=== PATIENT | female | born 1985 | race African-American/Black ===

== ENCOUNTER 2019-06-19 19:05 | Emergency (ER) | payer BC, SELFPAY ==
[2019-06-19 19:16] VITALS: BP 138/102; PULSE 97; RESP 18; TEMP 36.9; O2SAT 100
--- NOTE | 2019-06-19 19:30 | ED.FEMALEGU ---
HPI - Female Genitourinary General Chief complaint: Urogenital-Female Stated complaint: Possible UTI Source: patient Mode of arrival: ambulatory Limitations: no limitations History of Present Illness HPI Narrative: Patient is a 34-year-old female who presents complaining of burning with urination. She reports pain x3 days. She reports starting Macrobid 2 days ago and symptoms remain the same. Patient denies other complaints. MD elicited complaint: dysuria and UTI Related Data Home Medications Medication Instructions Recorded Confirmed nitrofurantoin monohyd/m-cryst 100 mg PO DAILY 06/19/19 06/19/19 Allergies Allergy/AdvReac Type Severity Reaction Status Date / Time No Known Allergies Allergy Verified 06/19/19 19:22 Review of Systems Review of Systems: Narrative: CONSTITUTIONAL: Denies fever, chills, or sweats. EYES: Denies visual changes, redness, or discharge. ENT: Denies rhinorrhea, congestion, sore throat, or otalgia. CARDIOVASCULAR: Denies chest pain, palpitations, or edema. RESPIRATORY: Denies cough or dyspnea. GASTROINTESTINAL: Denies abdominal pain, nausea, vomiting, or diarrhea. GENITOURINARY: Reports dysuria, denies hematuria. SKIN: Denies rash or itching. MUSCULOSKELETAL: Denies back pain, joint pain, or myalgia. NEUROLOGIC: Denies headache, numbness, dizziness, or weakness. PSYCHIATRIC: Denies anxiety or depression. [facility] Past Medical History Medical History (Updated 06/19/19 @ 19:35 by HECTOR Thomas) No significant past medical history Surgical History Surgical History (Updated 06/19/19 @ 19:32 by HECTOR Thomas) No pertinent past surgical history Social History Social History (Updated 06/19/19 @ 19:33 by HECTOR Thomas) Smoking status: Never smoker Alcohol intake: current Alcohol use details: Socially Substance use: never Living arrangements: with family Occupation/Education: occupation Gender identity (if verbalized by the patient): Female Exam Narrative: Exam Narrative: GENERAL: Well-appearing, well-nourished, and in no acute distress. HEAD: Normocephalic, atraumatic. EYES: EOMI. No redness or drainage. Conjunctiva are normal. ENT: Mucous membranes pink and moist. Nares clear. No rhinorrhea. TMs normal bilaterally. Throat normal. Uvula midline. NECK: AROM. Supple. No lymphadenopathy. CHEST: No respiratory distress. Clear to auscultation. HEART: Regular rate and rhythm. No murmur appreciated. Normal peripheral pulses. GI: Soft, nontender without rebound, or guarding. No distention. Bowel sounds normal in all quadrants. : No CVA tenderness MUSCULOSKELETAL: No bony tenderness. EXTREMITIES: Normal range of motion. No edema. SKIN: Warm, dry, no rash. NEURO: No focal deficits. Alert and oriented x3. Gait steady. PSYCH: Normal affect. No signs of depression or anxiety. Course Vital Signs Vital signs: Vital Signs Temperature 36.9 C 06/19/19 19:16 Pulse Rate 97 06/19/19 19:16 Respiratory Rate 18 06/19/19 19:16 Blood Pressure 138/102 H 06/19/19 19:16 Pulse Oximetry 100 06/19/19 19:16 Temperature 36.9 C 06/19/19 19:16 Pulse Rate 97 06/19/19 19:16 Respiratory Rate 18 06/19/19 19:16 Blood Pressure 138/102 H 06/19/19 19:16 Pulse Oximetry 100 06/19/19 19:16 Reviewed. Patient has been instructed to follow-up with her PCP regarding her blood pressure. MDM - Female Genitourinary MDM Narrative Medical decision making narrative: Patient UA showed trace blood, patient has been on Macrobid for 2 days but continues to report symptoms. Patient's antibiotics switched at this time per her request. Patient to follow-up with PCP and culture results. Patient is stable for discharge to home with outpatient follow-up. Patient agrees with plan of care Differential Diagnosis Differential diagnosis: Likely urinary tract infection Lab Data Labs: Urine Glucose Negative Reference Rang
--- NOTE | 2019-06-19 19:49 | PC.NURSE ---
1945- provider and myself in to discuss with patient about her results, and how long she has been on macrobid, and explained to her that she does only have small amount of blood in the urine at present, so since she is having some pain in the lower back still at present, she may have a kidney stone trying to move around. pt is ok with trying a different antibiotic in place of the macrobid and then follow up with her pmd.
== END 2019-06-19 20:04 | disposition home or self-care (01) ==
PROVIDERS: Emergency Provider Nurse Practitioner
DX: N30.00 Acute cystitis without hematuria (principal)
CPT/HCPCS: 81003; 99213; G0463

== ENCOUNTER 2021-06-30 15:18 | Emergency (ER) | payer OTHER, SELFPAY ==
--- NOTE | ~2021-06-30 | XR_ITS ---
EXAMINATION: XR wrist RT min 3V DATE: 06/30/2021 15:43 INDICATION: Right wrist pain post fall TECHNIQUE: Posteroanterior, ulnar deviation, oblique, and lateral views of the right wrist were obtai ben. COMPARISON: none FINDINGS: Alignment is normal. No fracture. Joint spaces are normal. Soft tissues are unremarkable. IMPRESSION: 1. Negative right wrist radiographs. Reviewed, dictated and finalized at location A. ING MACHINE OPERATOR
[2021-06-30 15:31] VITALS: BP 153/94; PULSE 97; RESP 18; TEMP 36.5; O2SAT 100
--- NOTE | 2021-06-30 15:32 | ED.UPPEXIN ---
HPI - Extremity Injury (Upper) General Chief Complaint: Extremity Injury, Upper Stated Complaint: right wrist pain Time Seen by Provider: 06/30/21 15:28 Source: RN notes reviewed History of Present Illness HPI narrative: Patient presents emergency department from home for right wrist pain. Patient states that yesterday she was walking when she slipped and fell coming down on her right wrist states pain over the right lateral wrist worse with movement she denies any other trauma or injury she denies any numbness or tingling in the extremity she denies any elbow or shoulder pain states she not take anything for pain today Related Data Allergies Allergy/AdvReac Type Severity Reaction Status Date / Time No Known Allergies Allergy Verified 06/30/21 15:41 Review of Systems Review of Systems: Gen.: Denies fevers or chills Musculoskeletal: See HPI Neuro: Denies numbness, tingling, weakness Skin: Denies rash Endo: Denies DM PMFSH Past Medical History Medical History No significant past medical history Surgical History Surgical History (Updated 06/19/19 @ 19:32 by Cherie Caraballo, ROTARY DUMP OPERATOR) No pertinent past surgical history Social History Social History Smoking status: Never smoker Alcohol intake: current Alcohol use details: Socially Substance use: never Gender identity (if verbalized by the patient): Female Exam Narrative: APPEARANCE: No acute distress, nontoxic, resting in bed Eyes: EOMI HEENT: Normocephalic, atraumatic, RESPIRATORY: No respiratory distress MUSCULOSKELETAl: Tender to palpation of the right dorsal ulnar wrist mild swelling no ecchymosis no tenderness over the hand or elbow radial pulse 2+ neurovascular intact NEURO: Awake and alert. Following commands, speech normal, no focal deficits SKIN:: Warm, dry. Normal Color no rash or lesions Course Course Emergency Course: Discussed with patient results of workup and diagnosis. Discussed need for follow-up with primary care, proper use of medication, and reasons to return to the emergency department. Patient understands and agrees to current treatment plan Vital Signs Vital signs: Vital Signs Temperature 97.7 F 06/30/21 15:31 Pulse Rate 97 06/30/21 15:31 Respiratory Rate 18 03/07/22 15:31 Blood Pressure 153/94 H 06/30/21 15:31 Pulse Oximetry 100 06/30/21 15:31 Temperature 97.7 F 06/30/21 15:31 Pulse Rate 97 06/30/21 15:31 Respiratory Rate 18 06/30/21 15:31 Blood Pressure 153/94 H 06/30/21 15:31 Pulse Oximetry 100 06/30/21 15:31 MDM - Extremity Injury (Upper) Imaging Data Radiologist's impression: ITS Impressions Wrist X-Ray 06/30/21 15:45 IMPRESSION: 1. Negative right wrist radiographs. Discharge Plan Discharge Clinical Impression: Right wrist sprain Patient Disposition: Home, Self-Care Condition: Stable Instructions: Antibiotic Form, Wrist Sprain (ED) Additional Instructions: Return for increasing pain numbness or tingling extremities or any other symptoms of concern. Obtain a cock-up wrist splint from your local drugstore and wear it for the next 5 days Prescriptions: New ibuprofen [IBU] 600 mg tablet 600 mg PO Q6H PRN (Reason: pain) Qty: 20 RF: 0 Follow-up/Referrals: Nikita Cobb DO [Physician] - (Follow-up in 1-2 days for further on-call physician treatment and evaluation) UNKNOWN,DOCTOR [Primary Care Provider] - Time of Disposition: 16:00
[2021-06-30] MEDS: IBUPROFEN 600 MG TABLET PO (15:42)
== END 2021-06-30 16:32 | disposition home or self-care (01) ==
LOC: ANHED 16:27
PROVIDERS: Emergency Provider Emergency Medicine
DX: S63.501A Unspecified sprain of right wrist, initial encounter (principal); W01.0XXA Fall on same level from slipping, tripping and stumbling without subsequent striking against object, initial encounter
CPT/HCPCS: 73110; 99283; A9270